=== PATIENT | male | born 1995 | race Caucasian/White ===

== ENCOUNTER 2017-04-04 11:21 | Emergency (ER) | payer BC ==
[2017-04-04] MEDS ORDERED: ACETAMINOPHEN 500 MG TABLET PO ONE (11:39)
--- NOTE | 2017-04-04 12:58 | ERNOTE ---
Date of Service: 04/04/17 Time Seen by Provider: 04/04/17 11:39 Stated Complaint: FEVER Presenting Symptoms:: cough, fever Source: patient, RN notes reviewed Exam Limitations: no limitations Immunizations: IMMUNIZATION HX Immunizations Up to Date Yes History of Influenza Vaccine No Hx Pneumococcal Vaccination No Allergies/Adverse Reactions: Allergies No Known Allergies Allergy (Unverified 07/05/12 11:20) Home Medications: HOME MEDICATIONS Azithromycin [Zithromax] 250 mg PO DAILY #4 tablet 04/04/17 [Last Taken Unknown] - History of Present Ilness Narrative: 22 year old male presents to the ED with a cough, fever and chills that began 2 days ago. He denies any sick contacts. He has not been taking anything for his symptoms. Frequency/Possible Cause: Reports: unknown cause Prior Treatment: Denies: recently seen Review of Systems - Review of Systems Constitutional: Present: fever, chills, fatigue, malaise. Absent: recent illness EYE: Absent: eye pain, eye discharge ENT: Present: sore throat. Absent: ear pain, nose congestion, nasal drainage Respiratory: Present: cough, wheezing. Absent: shortness of breath Cardiology: Absent: chest pain, palpitations, syncope Gastrointestinal/Abdominal: Absent: nausea, vomiting, abdominal pain Genitourinary: Present: no symptoms reported Musculoskeletal: Absent: muscle pain, joint pain Skin: Absent: rash, lesions Neurological: Present: headache, dizziness/light-headedness Endocrine: Present: no symptoms reported Hematologic/Lymphatic: Absent: easy bruising, easy bleeding Psych: Present: no symptoms reported - Patient's Past Medical History Patient History - Medical: No pertinent hx Patient History - Cardiac/Respiratory: No pertinent hx Patient History - Cancer: No Hx of Cancer Patient History - Surgical Procedures: T & A, Urology Patient History - Other: None - Social History Living Situations: significant other Abuse History: No History of abuse Psych History: No pertinent hx Smoking Status: Never smoker Have you smoked in the past 12 months: No Do you dip or chew tobacco: No Alcohol Use: occasionally Drug Use: none - Immunizations Immunizations Up to Date: Yes Hx Pneumococcal Vaccination: No History of Influenza Vaccine: No Physical Exam - Physical Exam General Appearance: Present: alert, mild distress, thin Head Exam: Present: normal inspection Eye Exam: Normal inspection: bilateral Ears, Nose, Throat: Present: pharyngeal erythema. Absent: abnormal TM (L), sinus pain/drainage, pharyngeal swelling, dry mucous membranes Neck: Present: normal inspection, nontender, supple Respiratory: Present: no respiratory distress, no accessory muscle use, decreased breath sounds, expiration (prolonged) Cardiovascular/Chest: Present: regular rate, rhythm, no murmur, normal peripheral pulses Gastrointestinal/Abdominal: Present: nontender, nondistended, soft Extremity Exam: Present: normal inspection, normal range of motion, no edema Neurological Exam: Present: alert, oriented, normal mood/affect Skin Exam: Present: normal color, warm/dry ED Progress - Results and Orders Patient's Lab Results:: I have reviewed the patient's lab results. - Vital Signs Patient's Vital Signs:: I have reviewed the patient's vital signs. Vital Signs: Vital Signs 04/04/17 04/04/17 11:27 12:08 Temperature 39.4 C H 38.4 C H Pulse Rate 134 H Respiratory 16 Rate Blood Pressure 119/78 O2 Sat by Pulse 98 Oximetry - X-Ray X-Ray #1 X-Ray: chest Interpretation: Reviewed by me X-ray Comments: PA and lateral views of the chest were obtained. 4 images. COMPARISONS: 07/05/12 FINDINGS: Chest PA Lateral * Hyperinflated lung volumes. No consolidation or mass. Central bronchial wall prominence noted. No pneumothorax or pleural fluid collections. Cardiac and mediastinal silhouettes are normal. Trachea is in normal position, with narrowing of the trachea seen at the level of the lower neck, with similar findings seen previously. Bones are normal. IMPRESSION: 1. Findings compatible with acute or chronic bronchitis versus reactive airways disease. No focal consolidation. 2. Narrowing of the trachea at the level of the neck, with similar findings seen previously. Could represent extrinsic impression made by enlarged thyroid gland. Correlate clinically. Electronically signed by Jermaine Cobb M.D.. Jermaine Cobb MD - Progress/Reassessment Chief Complaint: Fever Progress:: Improved Departure Clinical Impression: Bronchitis, acute Qualifiers: Bronchitis organism: unspecified organism Qualified Code(s): J20.9 - Acute bronchitis, unspecified - Departure Disposition: Home Follow Up Needed Condition: Stable Instructions: Form - Excuse from Work, School, or Physical Activity, Acute Bronchitis Additional Instructions: Rest and drink plenty of liquids Tylenol and ibuprofen for pain or fever Start antibiotics tomorrow Return to the ER or follow up with your doctor as needed for new or worsening symptoms Prescriptions: Azithromycin [Zithromax] 250 mg PO DAILY #4 tablet
[2017-04-04 13:20] LABS: Hemoglobin 14.5 gm/dL (13.5-18.0); Mean Cell Volume 86.4 fl (78-100); Mean Corpuscular Hemoglobin 29.8 pg (27-31); Mean Corpuscular Hgb Conc 34.5 g/dl (32-36); Mean Platelet Volume 9.3 fl (6.0-9.5); Neutrophil # 8.1 K/mm3 (1.3-6.0); Neutrophil % 81.1 % (42-75.0); Platelet Count 190 K/mm3 (150-450); Red Blood Count 4.86 M/mm3 (4.7-6.0); Red Cell Distribution Width 12.2 % (11.5-14.0); White Blood Count 9.9 K/mm3 (4.0-10.5)
[2017-04-04 13:33] LABS: Albumin * 4.3 gm/dl (3.4-5.0); Anion Gap 16.7 mmol/L (6.8-13.8); BUN/Creatinine Ratio 13.6 (9.0-21.6); Ca. Corrected For Albumin 8.5 mg/dL (8.4-10.2); Calcium * 9.1 mg/dL (7.9-10.9); Carbon Dioxide 25.1 mmol/L (24-32.6); Potassium 3.8 mmol/L (3.4-4.6); Total Protein 7.4 gm/dL (6.2-8.2)
[2017-04-04] MEDS ORDERED: AZITHROMYCIN 250 MG TABLET PO ONE (13:48)
[2017-04-04] MEDS ORDERED: AZITHROMYCIN 250 MG TABLET ONE ×2 (13:51→13:54)
[2017-04-04 14:01] VITALS: BP 99/63
== END 2017-04-04 14:00 | disposition home or self-care (01) ==
LOC: ER 11:21
DX: J20.9 Acute bronchitis, unspecified (principal)